=== PATIENT | male | born 1960 | race Caucasian/White ===

== ENCOUNTER 2019-05-30 10:45 | Inpatient (IN) | payer OTHER ==
[~2019-05-30] VITALS: Ht 165.1 cm; Wt 72.0 kg
[2019-05-30 11:24] LABS: BASOPHILS # (AUTO) 0.1 X10'3 (0-0.2); BASOPHILS % (AUTO) 0.4 % (0-1); EOSINOPHILS # (AUTO) 0.1 X10'3 (0-0.9); EOSINOPHILS % (AUTO) 1.2 % (0-6); HEMATOCRIT 46.1 % (42.0-52.0); HEMOGLOBIN 15.7 g/dl (14.0-17.9); LYMPHOCYTES # (AUTO) 1.5 X10'3 (1.1-4.8); LYMPHOCYTES % (AUTO) 13.5 % (21-51); MEAN CORPUSCULAR HEMOGLOBIN 30.4 PG (27.0-31.0); MEAN CORPUSCULAR HGB CONC 34.1 g/dL (33.0-36.5); MEAN CORPUSCULAR VOLUME 89.2 FL (78-98); MEAN PLATELET VOLUME 9.3 FL (7.4-10.4); MONOCYTES # (AUTO) 0.8 X10'3 (0-0.9); MONOCYTES % (AUTO) 7.3 % (2-12); NEUTROPHILS # (AUTO) 8.9 X10'3 (1.8-7.7); NEUTROPHILS % (AUTO) 77.6 % (42-75); PLATELET COUNT 308 X10'3 (140-440); RED BLOOD COUNT 5.17 X10'6 (4.70-6.10); RED CELL DISTRIBUTION WIDTH 13.2 % (11.5-14.5); WHITE BLOOD COUNT 11.5 X10'3 (4.5-11.0)
[2019-05-30 11:43] LABS: ACETAMINOPHEN < 2.0 UG/ML (10-30); ALANINE AMINOTRANSFERASE 28 U/L (12-78); ALBUMIN 3.5 G/DL (3.4-5.0); ALBUMIN/GLOBULIN RATIO 0.9 (1.1-1.5); ALKALINE PHOSPHATASE 88 IU/L (46-116); ANION GAP 9 (8-16); ASPARTATE AMINO TRANSFERASE 10 U/L (10-37); BILIRUBIN,TOTAL 0.6 MG/DL (0.1-1.0); BLOOD UREA NITROGEN 14 MG/DL (7-18); BUN/CREATININE RATIO 16.7 (5.4-32.0); CALCIUM 8.6 MG/DL (8.5-10.1); CHLORIDE 100 MMOL/L (99-107); CREATININE 0.84 MG/DL (0.60-1.10); ETHANOL < 0.010 GM/DL (0.0-0.010); GLUCOSE 332 MG/DL (70-104); PARTIAL THROMBOPLASTIN TIME 25 SECONDS (22-32); POTASSIUM 3.8 MMOL/L (3.5-5.1); SODIUM 137 MMOL/L (135-145); TOTAL CARBON DIOXIDE 28.5 MMOL/L (24-32); TOTAL PROTEIN 7.2 G/DL (6.4-8.2); eGFR > 90 ML/MIN
[2019-05-30 11:44] LABS: TROPONIN I < 0.04 NG/ML (0.0-0.05)
--- NOTE | 2019-05-30 12:00 | NUR ---
mri form faxed to [facility].
[2019-05-30] MEDS ORDERED: LORazepam 2 mg/ml vial IV ONE (13:10)
[2019-05-30] MEDS ORDERED: aspirin 325mg tablet PO ONE (15:10)
[2019-05-30] MEDS ORDERED: magnesium 4gm in 100ml NS 100 ML IV PRN (16:05)
[2019-05-30] MEDS ORDERED: morphine 2 MG/ML inj. syringe IV PRN ×2 (16:05)
[2019-05-30] MEDS ORDERED: atorvastatin 20mg tablet PO SCH (16:05)
[2019-05-30] MEDS ORDERED: magnesium hydroxide 30ml (MOM) UD suspension PO PRN (16:05)
[2019-05-30] MEDS ORDERED: bisacodyl 10mg suppository rectal RC PRN (16:05)
[2019-05-30] MEDS ORDERED: magnesium 2GM in 50ml NS 50 ML IV PRN (16:05)
[2019-05-30] MEDS ORDERED: acetaminophen 325mg tablet PO PRN ×2 (16:05)
[2019-05-30] MEDS ORDERED: diphenhydrAMINE 25mg capsule PO PRN (16:05)
[2019-05-30] MEDS ORDERED: mag hydrox/Alum hydrox/simeth 30ml oral suspension PO PRN (16:05)
[2019-05-30] MEDS ORDERED: HYDROcodone/acetaminophen 5mg/325mg tablet PO PRN (16:05)
[2019-05-30] MEDS ORDERED: potassium CL 10mEq/100ml bag 100 ML IV PRN (16:05)
[2019-05-30] MEDS ORDERED: HYDROcodone/acetaminophen 10/325mg tab PO PRN (16:05)
[2019-05-30] MEDS ORDERED: ondansetron/PF 4mg/2ml inj IV PRN (16:05)
[2019-05-30] MEDS ORDERED: diphenhydrAMINE 50 mg/ml inj IV PRN (16:05)
[2019-05-30] MEDS ORDERED: magnesium Cl slow-release 64mg tablet PO PRN (16:05)
[2019-05-30] MEDS ORDERED: potassium Cl 20 mEq SR tablet PO PRN ×2 (16:05)
[2019-05-30] MEDS ORDERED: potassium Cl 40MEQ/NS 500ml 500 ML IV PRN (16:05)
[2019-05-30] MEDS ORDERED: K and/or MAG REPLACEMENT MC SCH (16:05)
[2019-05-30] MEDS ORDERED: normal saline 1000ml 1,000 ML IV SCH (16:05)
[2019-05-30 16:31] LABS: HEMOGLOBIN A1C 10.9 % (4.5-6.2)
--- NOTE | 2019-05-30 16:48 | NUR ---
per stroke nurse, hold off on po meds until pt has swallow exam.
--- NOTE | 2019-05-30 17:01 | NUR ---
CALL TO [facility] WHO STATED THAT THEY ARE EXPERICING HIGH CALL VOLUMES, OUR CONSULT IS NEXT IN LINE.
[2019-05-30 19:26] VITALS: BP 149/83
[2019-05-30] MEDS ORDERED: heparin, porcine 5000 units/ml vial SQ SCH (20:00)
[2019-05-30] MEDS ORDERED: temazepam 15mg capsule PO PRN (21:00)
[2019-05-31] MEDS ORDERED: aspirin 81mg tablet.DR PO SCH (08:00)
== END 2019-05-30 18:15 | disposition short-term general hospital (02) | DRG 66 ==
LOC: EDSEX 10:46 → ER 10:46 → ORTHO 4S 16:30 → CANBEDREQ 17:48
PROVIDERS: ADMIT Family Medicine; ATTEND Family Medicine
DX: I63.30 Cerebral infarction due to thrombosis of unspecified cerebral artery (principal); R47.01 Aphasia; R47.81 Slurred speech; Z60.2 Problems related to living alone; Z79.82 Long term (current) use of aspirin; Z82.3 Family history of stroke; Z79.899 Other long term (current) drug therapy
CPT/HCPCS: 36415; 70450; 70544; 70547; 70551; 71045; 80053; 80320; 80329; 82948; 83036; 84484; 85025; 85610; 85730; 93005; 96374; 99285; G0378; J2060; J7030